=== PATIENT | male | born 1955 | race Caucasian/White ===

== ENCOUNTER 2018-09-11 08:20 | Inpatient (IN) | payer OTHER ==
[2018-09-11 09:43] LABS: ADD MAN DIFF? NO
[2018-09-11 09:45] LABS: BASOPHIL # 0.1 10^3/ul (0.0-0.1); BASOPHILS % 0.6 % (0.0-2.0); EOSINOPHILS # 0.2 10^3/ul (0.0-0.5); HEMATOCRIT 29.5 % (42.0-52.0); HEMOGLOBIN 9.7 g/dl (14.0-18.0); LYMPHOCYTES # 1.7 10^3/ul (0.8-2.9); LYMPHOCYTES % 20.4 % (15.0-51.0); MEAN CORPUSCULAR HEMOGLOBIN 29.1 pg (29.0-33.0); MEAN CORPUSCULAR HGB CONC 32.9 g/dl (32.0-37.0); MEAN CORPUSCULAR VOLUME 88.6 fl (82.0-101.0); MEAN PLATELET VOLUME 10.9 fl (7.4-10.4); MONOCYTE # 0.6 10^3/ul (0.3-0.9); NEUTROPHIL # 5.8 10^3/ul (1.6-7.5); NEUTROPHILS % 69.5 % (39.0-77.0); PLATELET COUNT 209 10^3/UL (140-415); RED BLOOD COUNT 3.33 10^6/ul (4.70-6.10); RED CELL DISTRIBUTION WIDTH 13.8 % (11.5-14.5)
[2018-09-11 09:45] LABS: WHITE BLOOD COUNT 8.3 10^3/ul (4.8-10.8)
[2018-09-11] MEDS: FUROSEMIDE 40 MG INJ IV (09:58)
[2018-09-11 10:10] LABS: ALANINE AMINOTRANSFERASE 22 IU/L (13-69); ALBUMIN 2.8 g/dl (3.3-4.9); ALBUMIN/GLOBULIN RATIO 0.96; ALKALINE PHOSPHATASE 69 IU/L (42-121); ANION GAP 7 (5-13); ASPARTATE AMINO TRANSFERASE 24 IU/L (15-46); CALCIUM 8.4 mg/dl (8.4-10.2); CARBON DIOXIDE 22 mmol/L (21-31); CHLORIDE 111 mmol/L (97-110); Estimated GFR 23 mL/min (>60); GLUCOSE 179 mg/dl (70-220); POTASSIUM 4.1 mmol/L (3.5-5.1); SODIUM 140 mmol/L (135-144); TOTAL PROTEIN 5.7 g/dl (6.1-8.1)
[2018-09-11 10:13] LABS: BLOOD UREA NITROGEN 39 mg/dl (7-20)
[2018-09-11 10:24] LABS: B-TYPE NATRIURETIC PEPTIDE 4250 PG/ML (0-125)
[2018-09-11] MEDS: ASPIRIN 325 MG TAB PO (10:53)
[2018-09-11] MEDS: ENOXAPARIN 100 MG/ML SYG SC (10:55)
[2018-09-11] MEDS: NITROGLYCERIN 2% 1 GM OINT PKT TD (10:55)
[2018-09-11] MEDS ORDERED: ONDANSETRON 4 MG INJ IV (12:30)
[2018-09-11] MEDS ORDERED: ACETAMINOPHEN 325 MG TAB PO ×2 (12:30→13:00)
[2018-09-11] MEDS ORDERED: HEPARIN 1000 UNITS/ML 10 ML INJ IV (13:00)
[2018-09-11] MEDS ORDERED: morphine 4 MG/ML VIAL IV (13:00)
[2018-09-11] MEDS ORDERED: NITROGLYCERIN (SL) 0.4 MG TAB SL (13:00)
[2018-09-11] MEDS ORDERED: NACL 0.9% 3 ML SYG IV (13:00)
[2018-09-11 13:08] LABS: ADD MAN DIFF? NO
[2018-09-11 13:14] LABS: WHITE BLOOD COUNT 9.2 10^3/ul (4.8-10.8)
[2018-09-11 13:14] LABS: BASOPHILS % 0.4 % (0.0-2.0); EOSINOPHILS # 0.2 10^3/ul (0.0-0.5); EOSINOPHILS % 1.7 % (0.0-7.0); HEMATOCRIT 26.9 % (42.0-52.0); HEMOGLOBIN 8.7 g/dl (14.0-18.0); LYMPHOCYTES # 2.5 10^3/ul (0.8-2.9); LYMPHOCYTES % 27.1 % (15.0-51.0); MEAN CORPUSCULAR HEMOGLOBIN 28.5 pg (29.0-33.0); MEAN CORPUSCULAR HGB CONC 32.3 g/dl (32.0-37.0); MEAN CORPUSCULAR VOLUME 88.2 fl (82.0-101.0); MEAN PLATELET VOLUME 10.9 fl (7.4-10.4); MONOCYTE # 0.7 10^3/ul (0.3-0.9); MONOCYTES % 7.3 % (0.0-11.0); NEUTROPHIL # 5.8 10^3/ul (1.6-7.5); NEUTROPHILS % 63.2 % (39.0-77.0); PLATELET COUNT 205 10^3/UL (140-415); RED BLOOD COUNT 3.05 10^6/ul (4.70-6.10); RED CELL DISTRIBUTION WIDTH 13.9 % (11.5-14.5)
[2018-09-11 13:34] LABS: INR 1.06; PROTIME 13.9 Sec (11.9-14.9); PT RATIO 1.1
[2018-09-11] MEDS ORDERED: HEPARIN 25000 UNITS/250 ML 250 ML IV (14:00)
[2018-09-11] MEDS ORDERED: GLUCOSE GEL 15 GRAM TUBE PO ×2 (14:30)
[2018-09-11] MEDS ORDERED: DEXTROSE 50% 50 ML SYRINGE IV (14:30)
[2018-09-11] MEDS ORDERED: GLUCAGON 1 MG INJ IM (14:30)
[2018-09-11] MEDS ORDERED: GLUCOSE GEL 15 GRAM TUBE BUCCAL (14:30)
[2018-09-11] MEDS: FAMOTIDINE 20 MG TAB PO (14:49)
[2018-09-11 15:22] LABS: HEMATOCRIT 31.3 % (42.0-52.0); HEMOGLOBIN 10.4 g/dl (14.0-18.0)
[2018-09-11 15:23] LABS: RETICULOCYTE COUNT # 0.083 X10^6 (0.020-0.110); RETICULOCYTE COUNT % 2.3 % (0.5-1.5)
[2018-09-11 15:23] LABS: RETICULOCYTE RBC 3.61
[2018-09-11] MEDS: SOD CHLORIDE 0.9% 1,000 ML IV (15:48)
[2018-09-11 16:27] LABS: IRON 48 ug/dl (35-150)
[2018-09-11 16:36] LABS: % IRON SATURATION 18 % SAT (22-52); TOTAL IRON BINDING CAPACITY 261 ug/dl (241-421)
[2018-09-11] MEDS: INSULIN ASPART [NOVOLOG] 3 ML PEN SC ×3 (17:46→20:52)
[2018-09-11 18:20] LABS: ADD UMIC YES; UR ASCORBIC ACID NEGATIVE (NEGATIVE); UR BACTERIA FEW /HPF (NONE SEEN); UR BILIRUBIN (Dip) NEGATIVE (NEGATIVE); UR BLOOD (Dip) 1+ mg/dL (NEGATIVE); UR CLARITY CLEAR (CLEAR); UR COLOR STRAW (YELLOW); UR GLUCOSE (Dip) 1+ mg/dL (NEGATIVE); UR KETONES (Dip) NEGATIVE (NEGATIVE); UR LEUKOCYTE ESTERASE (Dip) NEGATIVE Leu/ul (NEGATIVE); UR NITRITE (Dip) NEGATIVE (NEGATIVE); UR RBC 0 /HPF (0-5); UR SPECIFIC GRAVITY (Dip) 1.009 (1.003-1.030); UR TOTAL PROTEIN (Dip) 2+ mg/dl (NEGATIVE); UR UROBILINOGEN (Dip) NEGATIVE (NEGATIVE); UR WBC 1 /HPF (0-5)
[2018-09-11 19:00] LABS: CREATININE,URINE RANDOM 24.48 mg/dl (20-370)
[2018-09-11 19:00] LABS: SODIUM,URINE RANDOM 123 mmol/L (30-90)
[2018-09-11] MEDS: ACETYLCYSTEINE 600 MG CAP PO (20:54)
[2018-09-11] MEDS: ISOSORBIDE DINITRATE 20 MG TAB PO (20:55)
[2018-09-11] MEDS: ATORVASTATIN 80 MG TAB PO (20:55)
[2018-09-11] MEDS: INSULIN GLARGINE [LANTus] (100 UNITS/ML) SYG SC (20:58)
[2018-09-11] MEDS: HEPARIN 1000 UNITS/ML 10 ML INJ IV (23:19)
[2018-09-11] MEDS: HEPARIN 25000 UNITS/250 ML 250 ML IV (23:21)
[2018-09-12] MEDS: ACCU-CHEK XX (02:00)
[2018-09-12 05:41] LABS: ADD MAN DIFF? NO
[2018-09-12 05:43] LABS: BASOPHILS % 0.5 % (0.0-2.0); EOSINOPHILS # 0.2 10^3/ul (0.0-0.5); EOSINOPHILS % 2.1 % (0.0-7.0); HEMATOCRIT 30.1 % (42.0-52.0); HEMOGLOBIN 9.9 g/dl (14.0-18.0); LYMPHOCYTES # 2.3 10^3/ul (0.8-2.9); LYMPHOCYTES % 26.4 % (15.0-51.0); MEAN CORPUSCULAR HEMOGLOBIN 28.8 pg (29.0-33.0); MEAN CORPUSCULAR HGB CONC 32.9 g/dl (32.0-37.0); MEAN CORPUSCULAR VOLUME 87.5 fl (82.0-101.0); MEAN PLATELET VOLUME 11.6 fl (7.4-10.4); MONOCYTE # 0.6 10^3/ul (0.3-0.9); MONOCYTES % 7.1 % (0.0-11.0); NEUTROPHIL # 5.5 10^3/ul (1.6-7.5); NEUTROPHILS % 63.6 % (39.0-77.0); PLATELET COUNT 222 10^3/UL (140-415); RED BLOOD COUNT 3.44 10^6/ul (4.70-6.10); RED CELL DISTRIBUTION WIDTH 13.8 % (11.5-14.5)
[2018-09-12 05:43] LABS: WHITE BLOOD COUNT 8.6 10^3/ul (4.8-10.8)
[2018-09-12 06:18] LABS: HEMOGLOBIN A1C 9.3 % (0-5.9)
[2018-09-12] MEDS: HEPARIN 1000 UNITS/ML 10 ML INJ IV ×2 (06:19→12:05)
[2018-09-12 06:25] LABS: ALANINE AMINOTRANSFERASE 16 IU/L (13-69); ALBUMIN 2.8 g/dl (3.3-4.9); ALKALINE PHOSPHATASE 68 IU/L (42-121); ANION GAP 10 (5-13); ASPARTATE AMINO TRANSFERASE 23 IU/L (15-46); BLOOD UREA NITROGEN 43 mg/dl (7-20); CALCIUM 8.2 mg/dl (8.4-10.2); CARBON DIOXIDE 22 mmol/L (21-31); CHLORIDE 109 mmol/L (97-110); CHOL/HDL RATIO 7.8 RATIO; CHOLESTEROL 221 mg/dl (100-200); CREATININE 2.91 mg/dl (0.61-1.24); Estimated GFR 22 mL/min (>60); GLUCOSE 159 mg/dl (70-220); HDL CHOLESTEROL 28 mg/dl (30-78); LDL CHOLESTEROL,CALCULATED 106 mg/dl; MAGNESIUM 1.7 mg/dl (1.7-2.5); POTASSIUM 3.8 mmol/L (3.5-5.1); SODIUM 141 mmol/L (135-144); TOTAL PROTEIN 5.9 g/dl (6.1-8.1); TRIGLYCERIDES 436 mg/dl (0-149)
[2018-09-12] MEDS: SOD CHLORIDE 0.9% 1,000 ML IV ×3 (07:27→15:11)
[2018-09-12] MEDS: INSULIN ASPART [NOVOLOG] 3 ML PEN SC ×7 (07:46→20:05)
[2018-09-12] MEDS: ASPIRIN 81 MG TAB PO (08:14)
[2018-09-12] MEDS: FAMOTIDINE 20 MG TAB PO (08:15)
[2018-09-12] MEDS: ACETYLCYSTEINE 600 MG CAP PO ×2 (08:15→20:08)
[2018-09-12] MEDS: ISOSORBIDE DINITRATE 20 MG TAB PO ×3 (08:18→20:07)
[2018-09-12 11:19] LABS: PARTIAL THROMBOPLASTIN TIME 31.2 Sec (23.0-35.0)
[2018-09-12] MEDS: HEPARIN 25000 UNITS/250 ML 250 ML IV ×3 (12:06→19:29)
[2018-09-12] MEDS: INFLUENZA VIRUS VACCINE 0.5 ML (DISPENSING) IM* (15:10)
[2018-09-12] MEDS: LABETALOL HCL 20MG INJ IV (17:00)
[2018-09-12 19:23] LABS: PARTIAL THROMBOPLASTIN TIME 81.3 Sec (23.0-35.0)
[2018-09-12] MEDS: ATORVASTATIN 80 MG TAB PO (20:07)
[2018-09-12] MEDS: INSULIN GLARGINE [LANTus] (100 UNITS/ML) SYG SC (20:11)
[2018-09-13 01:46] LABS: PARTIAL THROMBOPLASTIN TIME 55.8 Sec (23.0-35.0)
[2018-09-13] MEDS: ACCU-CHEK XX (02:00)
[2018-09-13] MEDS: HEPARIN 25000 UNITS/250 ML 250 ML IV (02:14)
[2018-09-13] MEDS: INSULIN ASPART [NOVOLOG] 3 ML PEN SC ×7 (08:00→20:13)
[2018-09-13] MEDS: FAMOTIDINE 20 MG TAB PO (08:03)
[2018-09-13] MEDS: ASPIRIN 81 MG TAB PO (08:03)
[2018-09-13] MEDS: ACETYLCYSTEINE 600 MG CAP PO ×2 (08:03→20:06)
[2018-09-13] MEDS: ISOSORBIDE DINITRATE 20 MG TAB PO ×3 (08:05→20:13)
[2018-09-13 08:24] LABS: ADD MAN DIFF? NO
[2018-09-13 08:32] LABS: WHITE BLOOD COUNT 8.2 10^3/ul (4.8-10.8)
[2018-09-13 08:32] LABS: BASOPHILS % 0.5 % (0.0-2.0); EOSINOPHILS # 0.2 10^3/ul (0.0-0.5); EOSINOPHILS % 1.8 % (0.0-7.0); HEMATOCRIT 31.4 % (42.0-52.0); HEMOGLOBIN 10.2 g/dl (14.0-18.0); LYMPHOCYTES # 2.2 10^3/ul (0.8-2.9); LYMPHOCYTES % 26.8 % (15.0-51.0); MEAN CORPUSCULAR HEMOGLOBIN 28.6 pg (29.0-33.0); MEAN CORPUSCULAR HGB CONC 32.5 g/dl (32.0-37.0); MEAN PLATELET VOLUME 11.9 fl (7.4-10.4); MONOCYTE # 0.5 10^3/ul (0.3-0.9); MONOCYTES % 6.6 % (0.0-11.0); NEUTROPHIL # 5.2 10^3/ul (1.6-7.5); NEUTROPHILS % 64.1 % (39.0-77.0); PLATELET COUNT 237 10^3/UL (140-415); RED BLOOD COUNT 3.57 10^6/ul (4.70-6.10); RED CELL DISTRIBUTION WIDTH 13.9 % (11.5-14.5)
[2018-09-13 08:52] LABS: PARTIAL THROMBOPLASTIN TIME 51.7 Sec (23.0-35.0)
[2018-09-13 08:53] LABS: ANION GAP 11 (5-13); BLOOD UREA NITROGEN 38 mg/dl (7-20); CALCIUM 8.4 mg/dl (8.4-10.2); CARBON DIOXIDE 23 mmol/L (21-31); CHLORIDE 109 mmol/L (97-110); CREATININE 3.08 mg/dl (0.61-1.24); Estimated GFR 21 mL/min (>60); GLUCOSE 111 mg/dl (70-220); PHOSPHORUS 4.6 mg/dl (2.5-4.9); SODIUM 143 mmol/L (135-144)
[2018-09-13 09:08] LABS: MAGNESIUM 1.8 mg/dl (1.7-2.5)
[2018-09-13] MEDS: HEPARIN 5,000 UNIT/1 ML VIAL SC ×2 (14:20→20:16)
[2018-09-13 17:01] LABS: CREATININE, RANDOM URINE 31 mg/dL (20-320); MICROALBUMIN 200.4 mg/dL; MICROALBUMIN/CREATININE RATIO 6465 (<30)
[2018-09-13] MEDS: ATORVASTATIN 80 MG TAB PO (20:07)
[2018-09-13] MEDS: INSULIN GLARGINE [LANTus] (100 UNITS/ML) SYG SC (20:09)
[2018-09-14] MEDS: ACCU-CHEK XX (02:00)
[2018-09-14] MEDS: LABETALOL HCL 20MG INJ IV (04:19)
[2018-09-14] MEDS: HEPARIN 5,000 UNIT/1 ML VIAL SC ×3 (05:05→22:33)
[2018-09-14 05:13] LABS: ADD MAN DIFF? NO
[2018-09-14 05:20] LABS: BASOPHILS % 0.5 % (0.0-2.0); EOSINOPHILS # 0.2 10^3/ul (0.0-0.5); EOSINOPHILS % 2.5 % (0.0-7.0); HEMATOCRIT 29.1 % (42.0-52.0); HEMOGLOBIN 9.4 g/dl (14.0-18.0); LYMPHOCYTES # 2.1 10^3/ul (0.8-2.9); LYMPHOCYTES % 27.5 % (15.0-51.0); MEAN CORPUSCULAR HEMOGLOBIN 28.6 pg (29.0-33.0); MEAN CORPUSCULAR HGB CONC 32.3 g/dl (32.0-37.0); MEAN CORPUSCULAR VOLUME 88.4 fl (82.0-101.0); MEAN PLATELET VOLUME 10.9 fl (7.4-10.4); MONOCYTE # 0.6 10^3/ul (0.3-0.9); MONOCYTES % 7.3 % (0.0-11.0); NEUTROPHIL # 4.7 10^3/ul (1.6-7.5); NEUTROPHILS % 61.8 % (39.0-77.0); PLATELET COUNT 214 10^3/UL (140-415); RED BLOOD COUNT 3.29 10^6/ul (4.70-6.10); RED CELL DISTRIBUTION WIDTH 13.8 % (11.5-14.5)
[2018-09-14 05:20] LABS: WHITE BLOOD COUNT 7.6 10^3/ul (4.8-10.8)
[2018-09-14 05:37] LABS: ANION GAP 5 (5-13); BLOOD UREA NITROGEN 38 mg/dl (7-20); CALCIUM 8.3 mg/dl (8.4-10.2); CARBON DIOXIDE 23 mmol/L (21-31); CHLORIDE 115 mmol/L (97-110); CREATININE 3.02 mg/dl (0.61-1.24); Estimated GFR 21 mL/min (>60); GLUCOSE 137 mg/dl (70-220); MAGNESIUM 1.8 mg/dl (1.7-2.5); PHOSPHORUS 4.6 mg/dl (2.5-4.9); POTASSIUM 4.1 mmol/L (3.5-5.1); SODIUM 143 mmol/L (135-144)
[2018-09-14] MEDS: INSULIN ASPART [NOVOLOG] 3 ML PEN SC ×7 (07:51→20:40)
[2018-09-14] MEDS: ASPIRIN 81 MG TAB PO (08:37)
[2018-09-14] MEDS: ACETYLCYSTEINE 600 MG CAP PO ×2 (08:37→20:29)
[2018-09-14] MEDS: FAMOTIDINE 20 MG TAB PO (08:37)
[2018-09-14] MEDS: ISOSORBIDE DINITRATE 20 MG TAB PO ×3 (08:38→20:30)
[2018-09-14] MEDS: AMLODIPINE 5 MG TAB PO (08:39)
[2018-09-14 08:51] LABS: HAAIG REFLEX REFLEX FILED
[2018-09-14] MEDS: AMLODIPINE 10 MG TAB PO (10:51)
[2018-09-14 14:46] LABS: COMPLEMENT C3 136 mg/dl (88-165); COMPLEMENT C4 38 mg/dl (14-44)
[2018-09-14 15:10] LABS: HEPATITIS B SURFACE ANTIGEN NEGATIVE (NEGATIVE)
[2018-09-14 15:28] LABS: HEPATITIS B CORE ANTIBODY NEGATIVE (NEGATIVE); HEPATITIS C VIRAL ANTIBODY NEGATIVE (NEGATIVE)
[2018-09-14] MEDS: ATORVASTATIN 80 MG TAB PO (20:29)
[2018-09-14] MEDS: INSULIN GLARGINE [LANTus] (100 UNITS/ML) SYG SC (20:40)
[2018-09-14 22:22] LABS: RHEUMATOID FACTOR NEGATIVE (NEGATIVE)
[2018-09-15] MEDS: ACCU-CHEK XX (02:00)
[2018-09-15] MEDS: HEPARIN 5,000 UNIT/1 ML VIAL SC (06:00)
[2018-09-15 06:49] LABS: ADD MAN DIFF? NO
[2018-09-15 06:57] LABS: WHITE BLOOD COUNT 8.4 10^3/ul (4.8-10.8)
[2018-09-15 06:57] LABS: BASOPHILS % 0.5 % (0.0-2.0); EOSINOPHILS # 0.2 10^3/ul (0.0-0.5); EOSINOPHILS % 2.4 % (0.0-7.0); HEMATOCRIT 30.9 % (42.0-52.0); HEMOGLOBIN 9.9 g/dl (14.0-18.0); LYMPHOCYTES % 24.1 % (15.0-51.0); MEAN CORPUSCULAR HEMOGLOBIN 28.4 pg (29.0-33.0); MEAN CORPUSCULAR VOLUME 88.8 fl (82.0-101.0); MEAN PLATELET VOLUME 12.1 fl (7.4-10.4); MONOCYTE # 0.7 10^3/ul (0.3-0.9); MONOCYTES % 8.1 % (0.0-11.0); NEUTROPHIL # 5.4 10^3/ul (1.6-7.5); NEUTROPHILS % 64.4 % (39.0-77.0); PLATELET COUNT 222 10^3/UL (140-415); RED BLOOD COUNT 3.48 10^6/ul (4.70-6.10); RED CELL DISTRIBUTION WIDTH 14.3 % (11.5-14.5)
[2018-09-15] MEDS: ASPIRIN 81 MG TAB PO (06:59)
[2018-09-15 07:13] LABS: CREATINE KINASE 197 IU/L (23-200)
[2018-09-15 07:16] LABS: PROTIME 12.3 Sec (11.9-14.9)
[2018-09-15 07:19] LABS: ALANINE AMINOTRANSFERASE 31 IU/L (13-69); ALBUMIN 2.7 g/dl (3.3-4.9); ALKALINE PHOSPHATASE 72 IU/L (42-121); ANION GAP 4 (5-13); ASPARTATE AMINO TRANSFERASE 26 IU/L (15-46); BILIRUBIN,INDIRECT 0.1 mg/dl (0-1.1); BILIRUBIN,TOTAL 0.1 mg/dl (0.2-1.3); BLOOD UREA NITROGEN 36 mg/dl (7-20); CALCIUM 8.6 mg/dl (8.4-10.2); CARBON DIOXIDE 22 mmol/L (21-31); CHLORIDE 116 mmol/L (97-110); CREATININE 2.92 mg/dl (0.61-1.24); Estimated GFR 22 mL/min (>60); GLUCOSE 128 mg/dl (70-220); MAGNESIUM 1.8 mg/dl (1.7-2.5); POTASSIUM 4.2 mmol/L (3.5-5.1); SODIUM 142 mmol/L (135-144); TOTAL PROTEIN 5.4 g/dl (6.1-8.1)
[2018-09-15 07:26] LABS: CK INDEX 0.8; CK-MB 1.55 ng/ml (0.0-2.4)
[2018-09-15] MEDS ORDERED: MIDAZOLAM 1 MG/ML 2 ML INJ (07:27)
[2018-09-15] MEDS ORDERED: IODIXANOL LOCM 100 ML BTL (07:27)
[2018-09-15] MEDS ORDERED: LIDOCAINE 1% (MDV) 20 ML INJ (07:27)
[2018-09-15] MEDS ORDERED: HEPARIN 1000 UNITS/ML 10 ML INJ (07:27)
[2018-09-15] MEDS ORDERED: SOD CHLORIDE 0.9% 500 ML (07:28)
[2018-09-15] MEDS ORDERED: VERAPAMIL 5 MG INJ (07:28)
[2018-09-15] MEDS ORDERED: NITROGLYCERIN (IC) 100 MCG/ML INJ ×2 (07:28→08:41)
[2018-09-15] MEDS ORDERED: FENTAnyl 50 MCG/ML VIAL (07:28)
[2018-09-15 07:31] LABS: TROPONIN-I 0.537 ng/ml (0.000-0.120)
[2018-09-15] MEDS: INSULIN ASPART [NOVOLOG] 3 ML PEN SC ×5 (08:00→20:22)
[2018-09-15] MEDS ORDERED: BIVALIRUDIN 250MG /NS 50 ML 100 ML IVPB (08:06)
[2018-09-15] MEDS ORDERED: TICAGRELOR 90 MG TABLET (08:06)
[2018-09-15] MEDS: TICAGRELOR 90 MG TABLET PO ×2 (09:00→20:24)
[2018-09-15] MEDS: SOD CHLORIDE 0.9% 1,000 ML IV ×2 (09:25→09:32)
[2018-09-15 09:26] LABS: PHOSPHORUS 4.2 mg/dl (2.5-4.9)
[2018-09-15] MEDS: FAMOTIDINE 20 MG TAB PO (10:36)
[2018-09-15] MEDS: ISOSORBIDE DINITRATE 20 MG TAB PO ×3 (10:36→20:21)
[2018-09-15] MEDS: AMLODIPINE 10 MG TAB PO (10:37)
[2018-09-15] MEDS: ACETYLCYSTEINE 600 MG CAP PO ×2 (11:00→20:22)
[2018-09-15] MEDS: HYDROCODONE/APAP (5/325) TAB PO (12:00)
[2018-09-15] MEDS ORDERED: ATROPINE 1 MG/10 ML SYRINGE (12:44)
[2018-09-15 13:22] LABS: ANCA SCREEN NEGATIVE (NEGATIVE)
[2018-09-15 14:06] LABS: ANA SCREEN NEGATIVE (NEGATIVE)
[2018-09-15 15:42] LABS: MYELOPEROXIDASE ANTIBODY <1.0 AI; PROTEINASE-3 ANTIBODY <1.0 AI
[2018-09-15] MEDS: ONDANSETRON 4 MG INJ IV (16:48)
[2018-09-15] MEDS: morphine LIQ (10 MG/5 ML) CUP PO (16:48)
[2018-09-15] MEDS: ATORVASTATIN 80 MG TAB PO (20:22)
[2018-09-15] MEDS: INSULIN GLARGINE [LANTus] (100 UNITS/ML) SYG SC (20:23)
[2018-09-16] MEDS: ACCU-CHEK XX (02:50)
[2018-09-16 03:10] LABS: CREATININE,URINE RANDOM 150.64 mg/dl (20-370)
[2018-09-16 06:08] LABS: ADD MAN DIFF? NO
[2018-09-16 06:10] LABS: BASOPHILS % 0.3 % (0.0-2.0); EOSINOPHILS # 0.1 10^3/ul (0.0-0.5); EOSINOPHILS % 0.9 % (0.0-7.0); HEMATOCRIT 27.7 % (42.0-52.0); HEMOGLOBIN 8.8 g/dl (14.0-18.0); LYMPHOCYTES # 1.5 10^3/ul (0.8-2.9); LYMPHOCYTES % 17.3 % (15.0-51.0); MEAN CORPUSCULAR HEMOGLOBIN 28.5 pg (29.0-33.0); MEAN CORPUSCULAR HGB CONC 31.8 g/dl (32.0-37.0); MEAN CORPUSCULAR VOLUME 89.6 fl (82.0-101.0); MEAN PLATELET VOLUME 11.4 fl (7.4-10.4); MONOCYTE # 0.8 10^3/ul (0.3-0.9); MONOCYTES % 9.2 % (0.0-11.0); NEUTROPHIL # 6.3 10^3/ul (1.6-7.5); NEUTROPHILS % 72.1 % (39.0-77.0); PLATELET COUNT 220 10^3/UL (140-415); RED BLOOD COUNT 3.09 10^6/ul (4.70-6.10); RED CELL DISTRIBUTION WIDTH 14.4 % (11.5-14.5)
[2018-09-16 06:10] LABS: WHITE BLOOD COUNT 8.8 10^3/ul (4.8-10.8)
[2018-09-16 06:52] LABS: ANION GAP 5 (5-13); BLOOD UREA NITROGEN 41 mg/dl (7-20); CALCIUM 8.2 mg/dl (8.4-10.2); CARBON DIOXIDE 20 mmol/L (21-31); CHLORIDE 112 mmol/L (97-110); CREATININE 3.33 mg/dl (0.61-1.24); Estimated GFR 19 mL/min (>60); GLUCOSE 100 mg/dl (70-220); MAGNESIUM 1.8 mg/dl (1.7-2.5); PHOSPHORUS 4.5 mg/dl (2.5-4.9); POTASSIUM 4.2 mmol/L (3.5-5.1); SODIUM 137 mmol/L (135-144)
[2018-09-16] MEDS: INSULIN ASPART [NOVOLOG] 3 ML PEN SC ×7 (07:57→20:19)
[2018-09-16] MEDS: FAMOTIDINE 20 MG TAB PO (08:11)
[2018-09-16] MEDS: ISOSORBIDE DINITRATE 20 MG TAB PO ×3 (08:11→20:18)
[2018-09-16] MEDS: ASPIRIN 81 MG TAB PO (08:11)
[2018-09-16] MEDS: AMLODIPINE 10 MG TAB PO (08:12)
[2018-09-16] MEDS: TICAGRELOR 90 MG TABLET PO ×2 (08:16→20:22)
[2018-09-16] MEDS: ACETYLCYSTEINE 600 MG CAP PO ×2 (09:01→20:18)
[2018-09-16] MEDS: SOD CHLORIDE 0.9% 1,000 ML IV (09:09)
[2018-09-16 16:11] LABS: ANTI-DNA (DOUBLE STRANDED) <95 U/mL (< 301)
[2018-09-16] MEDS: ATORVASTATIN 80 MG TAB PO (20:18)
[2018-09-16] MEDS: INSULIN GLARGINE [LANTus] (100 UNITS/ML) SYG SC (20:21)
[2018-09-17] MEDS: ACCU-CHEK XX (01:50)
[2018-09-17] MEDS: SOD CHLORIDE 0.9% 1,000 ML IV ×2 (05:35→08:06)
[2018-09-17 06:19] LABS: ADD MAN DIFF? NO
[2018-09-17 06:34] LABS: BASOPHILS % 0.5 % (0.0-2.0); EOSINOPHILS # 0.1 10^3/ul (0.0-0.5); EOSINOPHILS % 1.5 % (0.0-7.0); LYMPHOCYTES # 1.5 10^3/ul (0.8-2.9); LYMPHOCYTES % 16.9 % (15.0-51.0); MEAN CORPUSCULAR HEMOGLOBIN 28.9 pg (29.0-33.0); MEAN CORPUSCULAR HGB CONC 32.1 g/dl (32.0-37.0); MEAN PLATELET VOLUME 11.4 fl (7.4-10.4); MONOCYTE # 0.9 10^3/ul (0.3-0.9); MONOCYTES % 9.8 % (0.0-11.0); NEUTROPHIL # 6.1 10^3/ul (1.6-7.5); PLATELET COUNT 221 10^3/UL (140-415); RED BLOOD COUNT 3.11 10^6/ul (4.70-6.10)
[2018-09-17 06:34] LABS: WHITE BLOOD COUNT 8.6 10^3/ul (4.8-10.8)
[2018-09-17 06:50] LABS: ANION GAP 5 (5-13); BLOOD UREA NITROGEN 47 mg/dl (7-20); CALCIUM 8.2 mg/dl (8.4-10.2); CARBON DIOXIDE 20 mmol/L (21-31); CHLORIDE 109 mmol/L (97-110); CREATININE 3.74 mg/dl (0.61-1.24); Estimated GFR 16 mL/min (>60); GLUCOSE 107 mg/dl (70-220); MAGNESIUM 1.9 mg/dl (1.7-2.5); PHOSPHORUS 4.9 mg/dl (2.5-4.9); POTASSIUM 4.3 mmol/L (3.5-5.1); SODIUM 134 mmol/L (135-144)
[2018-09-17] MEDS: INSULIN ASPART [NOVOLOG] 3 ML PEN SC ×7 (07:55→20:35)
[2018-09-17] MEDS: ACETYLCYSTEINE 600 MG CAP PO ×2 (08:00→21:20)
[2018-09-17] MEDS: ASPIRIN 81 MG TAB PO (08:00)
[2018-09-17] MEDS: FAMOTIDINE 20 MG TAB PO (08:00)
[2018-09-17] MEDS: AMLODIPINE 10 MG TAB PO (08:01)
[2018-09-17] MEDS: ISOSORBIDE DINITRATE 20 MG TAB PO ×3 (08:01→20:28)
[2018-09-17] MEDS: TICAGRELOR 90 MG TABLET PO ×2 (08:05→20:21)
[2018-09-17] MEDS ORDERED: ALBUTEROL/IPRATROPIUM (NEB) 3 ML AMP HHN (16:30)
[2018-09-17] MEDS: ALBUTEROL/IPRATROPIUM (NEB) 3 ML AMP HHN ×2 (16:58→20:30)
[2018-09-17 18:43] LABS: CREATINE KINASE 663 IU/L (23-200)
[2018-09-17] MEDS ORDERED: HEPARIN 1000 UNITS/ML 10 ML INJ IV (19:00)
[2018-09-17] MEDS: HEPARIN 1000 UNITS/ML 10 ML INJ IV (19:05)
[2018-09-17] MEDS: ATORVASTATIN 80 MG TAB PO (20:14)
[2018-09-17] MEDS: RANOLAZINE (SR) 500 MG TAB PO (20:14)
[2018-09-17 20:15] LABS: PARTIAL THROMBOPLASTIN TIME 97.2 Sec (23.0-35.0)
[2018-09-17] MEDS: INSULIN GLARGINE [LANTus] (100 UNITS/ML) SYG SC (20:22)
[2018-09-17] MEDS: HEPARIN 25000 UNITS/250 ML 250 ML IV (20:23)
[2018-09-18] MEDS: ALBUTEROL/IPRATROPIUM (NEB) 3 ML AMP HHN ×4 (02:02→20:02)
[2018-09-18] MEDS: ACCU-CHEK XX (02:39)
[2018-09-18 02:41] LABS: PARTIAL THROMBOPLASTIN TIME 36.8 Sec (23.0-35.0)
[2018-09-18 05:28] LABS: ADD MAN DIFF? NO
[2018-09-18 05:39] LABS: WHITE BLOOD COUNT 7.4 10^3/ul (4.8-10.8)
[2018-09-18 05:39] LABS: BASOPHILS % 0.4 % (0.0-2.0); EOSINOPHILS # 0.1 10^3/ul (0.0-0.5); EOSINOPHILS % 1.4 % (0.0-7.0); HEMOGLOBIN 8.2 g/dl (14.0-18.0); LYMPHOCYTES # 1.4 10^3/ul (0.8-2.9); LYMPHOCYTES % 18.5 % (15.0-51.0); MEAN CORPUSCULAR HEMOGLOBIN 29.1 pg (29.0-33.0); MEAN CORPUSCULAR HGB CONC 32.8 g/dl (32.0-37.0); MEAN CORPUSCULAR VOLUME 88.7 fl (82.0-101.0); MEAN PLATELET VOLUME 11.5 fl (7.4-10.4); MONOCYTE # 0.9 10^3/ul (0.3-0.9); MONOCYTES % 12.3 % (0.0-11.0); NEUTROPHIL # 4.9 10^3/ul (1.6-7.5); PLATELET COUNT 188 10^3/UL (140-415); RED BLOOD COUNT 2.82 10^6/ul (4.70-6.10); RED CELL DISTRIBUTION WIDTH 13.6 % (11.5-14.5)
[2018-09-18 05:44] LABS: CREATINE KINASE 543 IU/L (23-200)
[2018-09-18 05:53] LABS: ANION GAP 7 (5-13); BLOOD UREA NITROGEN 50 mg/dl (7-20); CALCIUM 8.2 mg/dl (8.4-10.2); CARBON DIOXIDE 19 mmol/L (21-31); CHLORIDE 109 mmol/L (97-110); CREATININE 3.78 mg/dl (0.61-1.24); Estimated GFR 16 mL/min (>60); GLUCOSE 96 mg/dl (70-220); MAGNESIUM 1.9 mg/dl (1.7-2.5); PHOSPHORUS 5.5 mg/dl (2.5-4.9); POTASSIUM 4.2 mmol/L (3.5-5.1); SODIUM 135 mmol/L (135-144)
[2018-09-18 05:58] LABS: CK INDEX 1.6
[2018-09-18 05:59] LABS: CK-MB 8.84 ng/ml (0.0-2.4)
[2018-09-18] MEDS: LORAZEPAM 2 MG INJ IV (07:05)
[2018-09-18] MEDS: INSULIN ASPART [NOVOLOG] 3 ML PEN SC ×7 (07:47→20:57)
[2018-09-18] MEDS: ASPIRIN 81 MG TAB PO (07:50)
[2018-09-18] MEDS: ISOSORBIDE DINITRATE 20 MG TAB PO ×3 (07:51→20:56)
[2018-09-18] MEDS: AMLODIPINE 10 MG TAB PO (07:51)
[2018-09-18] MEDS: FAMOTIDINE 20 MG TAB PO (07:51)
[2018-09-18] MEDS: RANOLAZINE (SR) 500 MG TAB PO ×2 (07:52→20:55)
[2018-09-18] MEDS: TICAGRELOR 90 MG TABLET PO ×2 (07:54→20:53)
[2018-09-18] MEDS: ACETYLCYSTEINE 600 MG CAP PO ×2 (09:10→20:55)
[2018-09-18 09:41] LABS: ALANINE AMINOTRANSFERASE 35 IU/L (13-69); ALBUMIN 2.7 g/dl (3.3-4.9); ALKALINE PHOSPHATASE 69 IU/L (42-121); ANION GAP 7 (5-13); ASPARTATE AMINO TRANSFERASE 54 IU/L (15-46); BILIRUBIN,INDIRECT 0.1 mg/dl (0-1.1); BILIRUBIN,TOTAL 0.1 mg/dl (0.2-1.3); BLOOD UREA NITROGEN 49 mg/dl (7-20); CALCIUM 8.1 mg/dl (8.4-10.2); CARBON DIOXIDE 18 mmol/L (21-31); CHLORIDE 109 mmol/L (97-110); CREATININE 3.58 mg/dl (0.61-1.24); Estimated GFR 17 mL/min (>60); GLUCOSE 96 mg/dl (70-220); POTASSIUM 4.3 mmol/L (3.5-5.1); SODIUM 134 mmol/L (135-144); TOTAL PROTEIN 5.4 g/dl (6.1-8.1)
[2018-09-18 09:51] LABS: B-TYPE NATRIURETIC PEPTIDE 6550 PG/ML (0-125)
[2018-09-18 17:46] LABS: CREATININE, RANDOM URINE 141 mg/dL (20-320); MICROALBUMIN >600.0 mg/dL
[2018-09-18] MEDS: INSULIN GLARGINE [LANTus] (100 UNITS/ML) SYG SC (20:53)
[2018-09-18] MEDS: ATORVASTATIN 80 MG TAB PO (20:55)
[2018-09-18] MEDS: POLYETHYLENE GLYCOL 17 GM PACKET NGT (21:00)
[2018-09-19] MEDS: ALBUTEROL/IPRATROPIUM (NEB) 3 ML AMP HHN ×4 (02:15→20:28)
[2018-09-19] MEDS: ACCU-CHEK XX (02:30)
[2018-09-19] MEDS: INSULIN ASPART [NOVOLOG] 3 ML PEN SC ×7 (07:35→21:35)
[2018-09-19] MEDS: RANOLAZINE (SR) 500 MG TAB PO ×2 (08:02→20:32)
[2018-09-19] MEDS: ASPIRIN 81 MG TAB PO (08:02)
[2018-09-19] MEDS: POLYETHYLENE GLYCOL 17 GM PACKET NGT (08:02)
[2018-09-19] MEDS: FAMOTIDINE 20 MG TAB PO (08:02)
[2018-09-19] MEDS: ACETYLCYSTEINE 600 MG CAP PO ×2 (08:03→20:32)
[2018-09-19] MEDS: AMLODIPINE 10 MG TAB PO (08:03)
[2018-09-19] MEDS: ISOSORBIDE DINITRATE 20 MG TAB PO ×3 (08:03→20:31)
[2018-09-19] MEDS: TICAGRELOR 90 MG TABLET PO ×2 (08:07→21:35)
[2018-09-19 08:27] LABS: ANION GAP 8 (5-13); BLOOD UREA NITROGEN 52 mg/dl (7-20); CALCIUM 8.4 mg/dl (8.4-10.2); CARBON DIOXIDE 17 mmol/L (21-31); CHLORIDE 109 mmol/L (97-110); CREATININE 3.87 mg/dl (0.61-1.24); Estimated GFR 16 mL/min (>60); GLUCOSE 79 mg/dl (70-220); PHOSPHORUS 6.5 mg/dl (2.5-4.9); POTASSIUM 4.7 mmol/L (3.5-5.1); SODIUM 134 mmol/L (135-144)
[2018-09-19] MEDS ORDERED: SENNA TAB PO (19:30)
[2018-09-19] MEDS: ATORVASTATIN 80 MG TAB PO (20:32)
[2018-09-19] MEDS: INSULIN GLARGINE [LANTus] (100 UNITS/ML) SYG SC (21:35)
[2018-09-20] MEDS: ALBUTEROL/IPRATROPIUM (NEB) 3 ML AMP HHN ×5 (01:25→19:52)
[2018-09-20] MEDS: ACCU-CHEK XX (02:00)
[2018-09-20 05:52] LABS: ADD MAN DIFF? NO
[2018-09-20 05:56] LABS: BASOPHILS % 0.2 % (0.0-2.0); EOSINOPHILS # 0.2 10^3/ul (0.0-0.5); EOSINOPHILS % 2.1 % (0.0-7.0); HEMOGLOBIN 8.6 g/dl (14.0-18.0); LYMPHOCYTES # 1.3 10^3/ul (0.8-2.9); LYMPHOCYTES % 15.6 % (15.0-51.0); MEAN CORPUSCULAR HEMOGLOBIN 28.4 pg (29.0-33.0); MEAN CORPUSCULAR HGB CONC 31.9 g/dl (32.0-37.0); MEAN CORPUSCULAR VOLUME 89.1 fl (82.0-101.0); MEAN PLATELET VOLUME 11.1 fl (7.4-10.4); MONOCYTE # 0.9 10^3/ul (0.3-0.9); MONOCYTES % 10.5 % (0.0-11.0); NEUTROPHIL # 6.1 10^3/ul (1.6-7.5); NEUTROPHILS % 71.1 % (39.0-77.0); PLATELET COUNT 260 10^3/UL (140-415); RED BLOOD COUNT 3.03 10^6/ul (4.70-6.10); RED CELL DISTRIBUTION WIDTH 13.4 % (11.5-14.5)
[2018-09-20 05:56] LABS: WHITE BLOOD COUNT 8.6 10^3/ul (4.8-10.8)
[2018-09-20 06:27] LABS: ANION GAP 8 (5-13); BLOOD UREA NITROGEN 59 mg/dl (7-20); CALCIUM 8.6 mg/dl (8.4-10.2); CARBON DIOXIDE 18 mmol/L (21-31); CHLORIDE 110 mmol/L (97-110); CREATININE 4.58 mg/dl (0.61-1.24); Estimated GFR 13 mL/min (>60); GLUCOSE 142 mg/dl (70-220); MAGNESIUM 2.1 mg/dl (1.7-2.5); PHOSPHORUS 6.2 mg/dl (2.5-4.9); POTASSIUM 4.6 mmol/L (3.5-5.1); SODIUM 136 mmol/L (135-144)
[2018-09-20] MEDS: INSULIN ASPART [NOVOLOG] 3 ML PEN SC ×7 (07:28→20:42)
[2018-09-20] MEDS: ASPIRIN 81 MG TAB PO (08:53)
[2018-09-20] MEDS: ACETYLCYSTEINE 600 MG CAP PO ×2 (08:54→20:40)
[2018-09-20] MEDS: ISOSORBIDE DINITRATE 20 MG TAB PO ×3 (08:54→20:40)
[2018-09-20] MEDS: RANOLAZINE (SR) 500 MG TAB PO ×2 (08:55→20:40)
[2018-09-20] MEDS: AMLODIPINE 10 MG TAB PO (08:55)
[2018-09-20] MEDS: FAMOTIDINE 20 MG TAB PO (08:55)
[2018-09-20] MEDS: TICAGRELOR 90 MG TABLET PO ×2 (08:57→21:09)
[2018-09-20] MEDS: SALINE 0.65% 45 ML NAS SPRAY NASAL ×2 (12:18→18:01)
[2018-09-20] MEDS: ATORVASTATIN 80 MG TAB PO (20:40)
[2018-09-20] MEDS: INSULIN GLARGINE [LANTus] (100 UNITS/ML) SYG SC (21:09)
[2018-09-21] MEDS: ALBUTEROL/IPRATROPIUM (NEB) 3 ML AMP HHN ×4 (01:47→21:18)
[2018-09-21] MEDS: ACCU-CHEK XX (02:00)
[2018-09-21] MEDS: SALINE 0.65% 45 ML NAS SPRAY NASAL (05:19)
[2018-09-21 05:50] LABS: ADD MAN DIFF? NO
[2018-09-21 06:05] LABS: BASOPHILS % 0.5 % (0.0-2.0); EOSINOPHILS # 0.2 10^3/ul (0.0-0.5); EOSINOPHILS % 2.1 % (0.0-7.0); HEMOGLOBIN 8.4 g/dl (14.0-18.0); LYMPHOCYTES # 1.5 10^3/ul (0.8-2.9); LYMPHOCYTES % 17.6 % (15.0-51.0); MEAN CORPUSCULAR HEMOGLOBIN 29.2 pg (29.0-33.0); MEAN CORPUSCULAR HGB CONC 32.3 g/dl (32.0-37.0); MEAN CORPUSCULAR VOLUME 90.3 fl (82.0-101.0); MEAN PLATELET VOLUME 11.2 fl (7.4-10.4); MONOCYTE # 0.7 10^3/ul (0.3-0.9); MONOCYTES % 8.1 % (0.0-11.0); NEUTROPHIL # 5.9 10^3/ul (1.6-7.5); NEUTROPHILS % 71.5 % (39.0-77.0); PLATELET COUNT 287 10^3/UL (140-415); RED BLOOD COUNT 2.88 10^6/ul (4.70-6.10); RED CELL DISTRIBUTION WIDTH 13.4 % (11.5-14.5)
[2018-09-21 06:05] LABS: WHITE BLOOD COUNT 8.2 10^3/ul (4.8-10.8)
[2018-09-21 07:23] LABS: ANION GAP 11 (5-13); BLOOD UREA NITROGEN 56 mg/dl (7-20); CALCIUM 8.9 mg/dl (8.4-10.2); CARBON DIOXIDE 18 mmol/L (21-31); CHLORIDE 109 mmol/L (97-110); CREATININE 4.45 mg/dl (0.61-1.24); Estimated GFR 13 mL/min (>60); GLUCOSE 84 mg/dl (70-220); MAGNESIUM 2.2 mg/dl (1.7-2.5); PHOSPHORUS 5.9 mg/dl (2.5-4.9); POTASSIUM 4.6 mmol/L (3.5-5.1); SODIUM 138 mmol/L (135-144)
[2018-09-21] MEDS: INSULIN ASPART [NOVOLOG] 3 ML PEN SC ×7 (08:00→21:00)
[2018-09-21] MEDS: FAMOTIDINE 20 MG TAB PO (09:28)
[2018-09-21] MEDS: RANOLAZINE (SR) 500 MG TAB PO ×2 (09:28→20:42)
[2018-09-21] MEDS: ACETYLCYSTEINE 600 MG CAP PO ×2 (09:28→21:56)
[2018-09-21] MEDS: ASPIRIN 81 MG TAB PO (09:28)
[2018-09-21] MEDS: AMLODIPINE 10 MG TAB PO (09:30)
[2018-09-21] MEDS: ISOSORBIDE DINITRATE 20 MG TAB PO ×3 (09:30→20:42)
[2018-09-21] MEDS: TICAGRELOR 90 MG TABLET PO ×2 (09:36→21:49)
[2018-09-21] MEDS: ATORVASTATIN 80 MG TAB PO (20:42)
[2018-09-21] MEDS: INSULIN GLARGINE [LANTus] (100 UNITS/ML) SYG SC (21:49)
[2018-09-22] MEDS: ACCU-CHEK XX (02:00)
[2018-09-22] MEDS: ALBUTEROL/IPRATROPIUM (NEB) 3 ML AMP HHN ×4 (02:07→19:39)
[2018-09-22 05:52] LABS: ADD MAN DIFF? NO
[2018-09-22 06:03] LABS: WHITE BLOOD COUNT 7.9 10^3/ul (4.8-10.8)
[2018-09-22 06:03] LABS: BASOPHIL # 0.1 10^3/ul (0.0-0.1); BASOPHILS % 0.6 % (0.0-2.0); EOSINOPHILS # 0.2 10^3/ul (0.0-0.5); EOSINOPHILS % 2.6 % (0.0-7.0); HEMATOCRIT 25.2 % (42.0-52.0); HEMOGLOBIN 8.1 g/dl (14.0-18.0); LYMPHOCYTES # 1.4 10^3/ul (0.8-2.9); LYMPHOCYTES % 17.4 % (15.0-51.0); MEAN CORPUSCULAR HEMOGLOBIN 29.1 pg (29.0-33.0); MEAN CORPUSCULAR HGB CONC 32.1 g/dl (32.0-37.0); MEAN CORPUSCULAR VOLUME 90.6 fl (82.0-101.0); MEAN PLATELET VOLUME 10.9 fl (7.4-10.4); MONOCYTE # 0.7 10^3/ul (0.3-0.9); MONOCYTES % 8.6 % (0.0-11.0); NEUTROPHIL # 5.6 10^3/ul (1.6-7.5); NEUTROPHILS % 70.5 % (39.0-77.0); PLATELET COUNT 283 10^3/UL (140-415); RED BLOOD COUNT 2.78 10^6/ul (4.70-6.10); RED CELL DISTRIBUTION WIDTH 13.2 % (11.5-14.5)
[2018-09-22 06:45] LABS: ANION GAP 10 (5-13); CALCIUM 8.8 mg/dl (8.4-10.2); CARBON DIOXIDE 18 mmol/L (21-31); CHLORIDE 109 mmol/L (97-110); CREATININE 4.32 mg/dl (0.61-1.24); Estimated GFR 14 mL/min (>60); GLUCOSE 79 mg/dl (70-220); MAGNESIUM 2.1 mg/dl (1.7-2.5); PHOSPHORUS 5.8 mg/dl (2.5-4.9); POTASSIUM 4.8 mmol/L (3.5-5.1); SODIUM 137 mmol/L (135-144)
[2018-09-22 07:21] LABS: BLOOD UREA NITROGEN 55 mg/dl (7-20)
[2018-09-22] MEDS: INSULIN ASPART [NOVOLOG] 3 ML PEN SC ×7 (08:00→20:46)
[2018-09-22] MEDS: FAMOTIDINE 20 MG TAB PO (08:20)
[2018-09-22] MEDS: ACETYLCYSTEINE 600 MG CAP PO ×2 (09:50→20:43)
[2018-09-22] MEDS: RANOLAZINE (SR) 500 MG TAB PO ×2 (09:50→20:45)
[2018-09-22] MEDS: ISOSORBIDE DINITRATE 20 MG TAB PO ×3 (09:50→20:44)
[2018-09-22] MEDS: ASPIRIN 81 MG TAB PO (09:50)
[2018-09-22] MEDS: AMLODIPINE 10 MG TAB PO (09:51)
[2018-09-22] MEDS: TICAGRELOR 90 MG TABLET PO ×2 (10:38→21:00)
[2018-09-22] MEDS: EPOETIN 10000 UNITS/1 ML INJ (ESRD) SC (17:57)
[2018-09-22] MEDS: ATORVASTATIN 80 MG TAB PO (20:45)
[2018-09-22] MEDS: INSULIN GLARGINE [LANTus] (100 UNITS/ML) SYG SC (20:59)
[2018-09-23] MEDS: ALBUTEROL/IPRATROPIUM (NEB) 3 ML AMP HHN ×4 (02:01→20:01)
[2018-09-23] MEDS: ACCU-CHEK XX (02:55)
[2018-09-23 06:17] LABS: ADD MAN DIFF? NO
[2018-09-23 06:18] LABS: BASOPHIL # 0.1 10^3/ul (0.0-0.1); BASOPHILS % 0.7 % (0.0-2.0); EOSINOPHILS # 0.2 10^3/ul (0.0-0.5); EOSINOPHILS % 2.5 % (0.0-7.0); HEMATOCRIT 26.2 % (42.0-52.0); HEMOGLOBIN 8.4 g/dl (14.0-18.0); LYMPHOCYTES # 1.6 10^3/ul (0.8-2.9); LYMPHOCYTES % 22.1 % (15.0-51.0); MEAN CORPUSCULAR HEMOGLOBIN 28.9 pg (29.0-33.0); MEAN CORPUSCULAR HGB CONC 32.1 g/dl (32.0-37.0); MEAN PLATELET VOLUME 10.6 fl (7.4-10.4); MONOCYTE # 0.7 10^3/ul (0.3-0.9); MONOCYTES % 9.1 % (0.0-11.0); NEUTROPHIL # 4.7 10^3/ul (1.6-7.5); PLATELET COUNT 312 10^3/UL (140-415); RED BLOOD COUNT 2.91 10^6/ul (4.70-6.10); RED CELL DISTRIBUTION WIDTH 13.2 % (11.5-14.5)
[2018-09-23 06:18] LABS: WHITE BLOOD COUNT 7.2 10^3/ul (4.8-10.8)
[2018-09-23 06:34] LABS: ANION GAP 12 (5-13); BLOOD UREA NITROGEN 52 mg/dl (7-20); CALCIUM 8.8 mg/dl (8.4-10.2); CARBON DIOXIDE 18 mmol/L (21-31); CHLORIDE 107 mmol/L (97-110); Estimated GFR 15 mL/min (>60); GLUCOSE 108 mg/dl (70-220); PHOSPHORUS 5.5 mg/dl (2.5-4.9); POTASSIUM 4.7 mmol/L (3.5-5.1); SODIUM 137 mmol/L (135-144)
[2018-09-23] MEDS: INSULIN ASPART [NOVOLOG] 3 ML PEN SC ×7 (07:54→20:29)
[2018-09-23] MEDS: FAMOTIDINE 20 MG TAB PO (09:32)
[2018-09-23] MEDS: ACETYLCYSTEINE 600 MG CAP PO ×2 (09:33→20:31)
[2018-09-23] MEDS: AMLODIPINE 10 MG TAB PO (09:33)
[2018-09-23] MEDS: ISOSORBIDE DINITRATE 20 MG TAB PO ×3 (09:34→20:31)
[2018-09-23] MEDS: RANOLAZINE (SR) 500 MG TAB PO ×2 (09:34→20:31)
[2018-09-23] MEDS: ASPIRIN 81 MG TAB PO (09:34)
[2018-09-23] MEDS: TICAGRELOR 90 MG TABLET PO ×2 (09:39→20:32)
[2018-09-23] MEDS: ATORVASTATIN 80 MG TAB PO (20:31)
[2018-09-23] MEDS: INSULIN GLARGINE [LANTus] (100 UNITS/ML) SYG SC (20:33)
[2018-09-24] MEDS: ALBUTEROL/IPRATROPIUM (NEB) 3 ML AMP HHN ×4 (01:42→19:54)
[2018-09-24] MEDS: ACCU-CHEK XX (02:00)
[2018-09-24 05:21] LABS: ADD MAN DIFF? NO
[2018-09-24 05:23] LABS: BASOPHIL # 0.1 10^3/ul (0.0-0.1); BASOPHILS % 0.6 % (0.0-2.0); EOSINOPHILS # 0.2 10^3/ul (0.0-0.5); HEMATOCRIT 25.6 % (42.0-52.0); HEMOGLOBIN 8.1 g/dl (14.0-18.0); LYMPHOCYTES # 1.8 10^3/ul (0.8-2.9); LYMPHOCYTES % 21.8 % (15.0-51.0); MEAN CORPUSCULAR HEMOGLOBIN 28.7 pg (29.0-33.0); MEAN CORPUSCULAR HGB CONC 31.6 g/dl (32.0-37.0); MEAN CORPUSCULAR VOLUME 90.8 fl (82.0-101.0); MEAN PLATELET VOLUME 10.1 fl (7.4-10.4); MONOCYTE # 0.6 10^3/ul (0.3-0.9); MONOCYTES % 7.8 % (0.0-11.0); NEUTROPHIL # 5.3 10^3/ul (1.6-7.5); NEUTROPHILS % 65.8 % (39.0-77.0); PLATELET COUNT 307 10^3/UL (140-415); RED BLOOD COUNT 2.82 10^6/ul (4.70-6.10); RED CELL DISTRIBUTION WIDTH 13.1 % (11.5-14.5)
[2018-09-24 05:23] LABS: WHITE BLOOD COUNT 8.1 10^3/ul (4.8-10.8)
[2018-09-24 05:56] LABS: ANION GAP 5 (5-13); BLOOD UREA NITROGEN 48 mg/dl (7-20); CALCIUM 8.5 mg/dl (8.4-10.2); CARBON DIOXIDE 19 mmol/L (21-31); CHLORIDE 111 mmol/L (97-110); CREATININE 4.05 mg/dl (0.61-1.24); GLUCOSE 100 mg/dl (70-220); MAGNESIUM 1.9 mg/dl (1.7-2.5); PHOSPHORUS 5.4 mg/dl (2.5-4.9); POTASSIUM 4.4 mmol/L (3.5-5.1); SODIUM 135 mmol/L (135-144)
[2018-09-24] MEDS: INSULIN ASPART [NOVOLOG] 3 ML PEN SC ×7 (07:40→20:01)
[2018-09-24] MEDS: ACETYLCYSTEINE 600 MG CAP PO ×2 (09:09→20:22)
[2018-09-24] MEDS: ISOSORBIDE DINITRATE 20 MG TAB PO ×3 (09:10→20:22)
[2018-09-24] MEDS: RANOLAZINE (SR) 500 MG TAB PO ×2 (09:10→20:22)
[2018-09-24] MEDS: AMLODIPINE 10 MG TAB PO (09:10)
[2018-09-24] MEDS: FAMOTIDINE 20 MG TAB PO (09:11)
[2018-09-24] MEDS: ASPIRIN 81 MG TAB PO (09:11)
[2018-09-24] MEDS: TICAGRELOR 90 MG TABLET PO ×2 (09:50→20:30)
[2018-09-24] MEDS: ATORVASTATIN 80 MG TAB PO (20:22)
[2018-09-24] MEDS: INSULIN GLARGINE [LANTus] (100 UNITS/ML) SYG SC (20:30)
[2018-09-25] MEDS: ACCU-CHEK XX (02:00)
[2018-09-25] MEDS: ALBUTEROL/IPRATROPIUM (NEB) 3 ML AMP HHN ×4 (02:19→20:14)
[2018-09-25 05:26] LABS: ADD MAN DIFF? NO
[2018-09-25 05:32] LABS: BASOPHIL # 0.1 10^3/ul (0.0-0.1); BASOPHILS % 0.7 % (0.0-2.0); EOSINOPHILS # 0.3 10^3/ul (0.0-0.5); EOSINOPHILS % 3.1 % (0.0-7.0); HEMATOCRIT 25.2 % (42.0-52.0); HEMOGLOBIN 8.1 g/dl (14.0-18.0); LYMPHOCYTES # 1.8 10^3/ul (0.8-2.9); LYMPHOCYTES % 21.7 % (15.0-51.0); MEAN CORPUSCULAR HEMOGLOBIN 28.8 pg (29.0-33.0); MEAN CORPUSCULAR HGB CONC 32.1 g/dl (32.0-37.0); MEAN CORPUSCULAR VOLUME 89.7 fl (82.0-101.0); MEAN PLATELET VOLUME 10.1 fl (7.4-10.4); MONOCYTE # 0.7 10^3/ul (0.3-0.9); MONOCYTES % 8.7 % (0.0-11.0); NEUTROPHIL # 5.4 10^3/ul (1.6-7.5); NEUTROPHILS % 64.5 % (39.0-77.0); PLATELET COUNT 335 10^3/UL (140-415); RED BLOOD COUNT 2.81 10^6/ul (4.70-6.10); RED CELL DISTRIBUTION WIDTH 13.2 % (11.5-14.5)
[2018-09-25 05:32] LABS: WHITE BLOOD COUNT 8.4 10^3/ul (4.8-10.8)
[2018-09-25 05:56] LABS: ALBUMIN 2.9 g/dl (3.3-4.9); ANION GAP 9 (5-13); BLOOD UREA NITROGEN 43 mg/dl (7-20); CALCIUM 8.9 mg/dl (8.4-10.2); CARBON DIOXIDE 18 mmol/L (21-31); CHLORIDE 110 mmol/L (97-110); CREATININE 3.93 mg/dl (0.61-1.24); GLUCOSE 74 mg/dl (70-220); PHOSPHORUS 5.5 mg/dl (2.5-4.9); POTASSIUM 4.4 mmol/L (3.5-5.1); SODIUM 137 mmol/L (135-144)
[2018-09-25] MEDS: INSULIN ASPART [NOVOLOG] 3 ML PEN SC ×7 (07:52→20:17)
[2018-09-25] MEDS: ACETYLCYSTEINE 600 MG CAP PO ×2 (07:59→20:11)
[2018-09-25] MEDS: AMLODIPINE 10 MG TAB PO (07:59)
[2018-09-25] MEDS: ASPIRIN 81 MG TAB PO (08:00)
[2018-09-25] MEDS: FAMOTIDINE 20 MG TAB PO (08:26)
[2018-09-25] MEDS: RANOLAZINE (SR) 500 MG TAB PO ×2 (08:26→20:10)
[2018-09-25] MEDS: ISOSORBIDE DINITRATE 20 MG TAB PO ×3 (08:27→20:11)
[2018-09-25] MEDS: TICAGRELOR 90 MG TABLET PO ×2 (08:42→20:12)
[2018-09-25] MEDS: SENNA/DOCUSATE NA (8.6MG/50MG) TAB PO ×2 (13:08→20:10)
[2018-09-25] MEDS: ATORVASTATIN 80 MG TAB PO (20:10)
[2018-09-25] MEDS: INSULIN GLARGINE [LANTus] (100 UNITS/ML) SYG SC (20:17)
[2018-09-26] MEDS: ALBUTEROL/IPRATROPIUM (NEB) 3 ML AMP HHN ×4 (02:00→21:08)
[2018-09-26 05:29] LABS: ADD MAN DIFF? NO
[2018-09-26 05:39] LABS: BASOPHIL # 0.1 10^3/ul (0.0-0.1); BASOPHILS % 0.8 % (0.0-2.0); EOSINOPHILS # 0.2 10^3/ul (0.0-0.5); EOSINOPHILS % 2.7 % (0.0-7.0); HEMOGLOBIN 8.7 g/dl (14.0-18.0); LYMPHOCYTES # 1.8 10^3/ul (0.8-2.9); LYMPHOCYTES % 19.6 % (15.0-51.0); MEAN CORPUSCULAR HEMOGLOBIN 28.8 pg (29.0-33.0); MEAN CORPUSCULAR HGB CONC 32.2 g/dl (32.0-37.0); MEAN CORPUSCULAR VOLUME 89.4 fl (82.0-101.0); MEAN PLATELET VOLUME 9.8 fl (7.4-10.4); MONOCYTE # 0.8 10^3/ul (0.3-0.9); MONOCYTES % 8.6 % (0.0-11.0); NEUTROPHIL # 6.1 10^3/ul (1.6-7.5); NEUTROPHILS % 67.4 % (39.0-77.0); PLATELET COUNT 354 10^3/UL (140-415); RED BLOOD COUNT 3.02 10^6/ul (4.70-6.10); RED CELL DISTRIBUTION WIDTH 13.2 % (11.5-14.5)
[2018-09-26 06:16] LABS: ALBUMIN 3.3 g/dl (3.3-4.9); ANION GAP 11 (5-13); BLOOD UREA NITROGEN 40 mg/dl (7-20); CALCIUM 9.1 mg/dl (8.4-10.2); CARBON DIOXIDE 18 mmol/L (21-31); CHLORIDE 108 mmol/L (97-110); CREATININE 3.85 mg/dl (0.61-1.24); GLUCOSE 72 mg/dl (70-220); PHOSPHORUS 5.3 mg/dl (2.5-4.9); POTASSIUM 4.2 mmol/L (3.5-5.1); SODIUM 137 mmol/L (135-144)
[2018-09-26] MEDS: INSULIN ASPART [NOVOLOG] 3 ML PEN SC ×7 (08:00→20:36)
[2018-09-26] MEDS: ACETYLCYSTEINE 600 MG CAP PO ×2 (10:38→20:28)
[2018-09-26] MEDS: ASPIRIN 81 MG TAB PO (10:39)
[2018-09-26] MEDS: ISOSORBIDE DINITRATE 20 MG TAB PO ×3 (10:39→20:29)
[2018-09-26] MEDS: SENNA/DOCUSATE NA (8.6MG/50MG) TAB PO ×2 (10:39→20:28)
[2018-09-26] MEDS: FAMOTIDINE 20 MG TAB PO (10:41)
[2018-09-26] MEDS: AMLODIPINE 10 MG TAB PO (10:41)
[2018-09-26] MEDS: RANOLAZINE (SR) 500 MG TAB PO ×2 (10:41→20:28)
[2018-09-26] MEDS: TICAGRELOR 90 MG TABLET PO ×2 (10:50→20:35)
[2018-09-26] MEDS: ATORVASTATIN 80 MG TAB PO (20:28)
[2018-09-26] MEDS: INSULIN GLARGINE [LANTus] (100 UNITS/ML) SYG SC (20:35)
[2018-09-27] MEDS: ALBUTEROL/IPRATROPIUM (NEB) 3 ML AMP HHN ×4 (01:49→20:03)
[2018-09-27 05:21] LABS: ADD MAN DIFF? NO
[2018-09-27 05:33] LABS: BASOPHIL # 0.1 10^3/ul (0.0-0.1); BASOPHILS % 0.7 % (0.0-2.0); EOSINOPHILS # 0.2 10^3/ul (0.0-0.5); EOSINOPHILS % 1.9 % (0.0-7.0); HEMATOCRIT 26.8 % (42.0-52.0); HEMOGLOBIN 8.5 g/dl (14.0-18.0); LYMPHOCYTES # 1.7 10^3/ul (0.8-2.9); LYMPHOCYTES % 18.8 % (15.0-51.0); MEAN CORPUSCULAR HEMOGLOBIN 28.4 pg (29.0-33.0); MEAN CORPUSCULAR HGB CONC 31.7 g/dl (32.0-37.0); MEAN CORPUSCULAR VOLUME 89.6 fl (82.0-101.0); MEAN PLATELET VOLUME 9.7 fl (7.4-10.4); MONOCYTE # 0.7 10^3/ul (0.3-0.9); MONOCYTES % 7.8 % (0.0-11.0); NEUTROPHIL # 6.4 10^3/ul (1.6-7.5); NEUTROPHILS % 69.9 % (39.0-77.0); PLATELET COUNT 357 10^3/UL (140-415); RED BLOOD COUNT 2.99 10^6/ul (4.70-6.10); RED CELL DISTRIBUTION WIDTH 13.4 % (11.5-14.5)
[2018-09-27 05:33] LABS: WHITE BLOOD COUNT 9.2 10^3/ul (4.8-10.8)
[2018-09-27 05:51] LABS: ALBUMIN 3.1 g/dl (3.3-4.9); ANION GAP 9 (5-13); BLOOD UREA NITROGEN 40 mg/dl (7-20); CALCIUM 8.7 mg/dl (8.4-10.2); CARBON DIOXIDE 20 mmol/L (21-31); CHLORIDE 108 mmol/L (97-110); CREATININE 3.85 mg/dl (0.61-1.24); GLUCOSE 92 mg/dl (70-220); MAGNESIUM 1.9 mg/dl (1.7-2.5); PHOSPHORUS 5.2 mg/dl (2.5-4.9); POTASSIUM 4.5 mmol/L (3.5-5.1); SODIUM 137 mmol/L (135-144)
[2018-09-27] MEDS: INSULIN ASPART [NOVOLOG] 3 ML PEN SC ×7 (08:00→21:00)
[2018-09-27] MEDS: SENNA/DOCUSATE NA (8.6MG/50MG) TAB PO ×2 (08:57→20:54)
[2018-09-27] MEDS: ASPIRIN 81 MG TAB PO (08:57)
[2018-09-27] MEDS: ACETYLCYSTEINE 600 MG CAP PO ×2 (08:58→20:54)
[2018-09-27] MEDS: FAMOTIDINE 20 MG TAB PO (08:58)
[2018-09-27] MEDS: AMLODIPINE 10 MG TAB PO (08:58)
[2018-09-27] MEDS: ISOSORBIDE DINITRATE 20 MG TAB PO ×3 (08:58→20:55)
[2018-09-27] MEDS: RANOLAZINE (SR) 500 MG TAB PO ×2 (08:59→20:54)
[2018-09-27] MEDS: TICAGRELOR 90 MG TABLET PO ×2 (09:02→21:03)
[2018-09-27] MEDS: ATORVASTATIN 80 MG TAB PO (20:54)
[2018-09-27] MEDS: INSULIN GLARGINE [LANTus] (100 UNITS/ML) SYG SC (21:03)
[2018-09-28] MEDS: SOD CHLORIDE 0.9% 1,000 ML IV ×3 (00:04→20:00)
[2018-09-28] MEDS: ALBUTEROL/IPRATROPIUM (NEB) 3 ML AMP HHN ×4 (01:22→19:39)
[2018-09-28 05:57] LABS: ADD MAN DIFF? NO
[2018-09-28 06:16] LABS: BASOPHIL # 0.1 10^3/ul (0.0-0.1); BASOPHILS % 0.6 % (0.0-2.0); EOSINOPHILS # 0.2 10^3/ul (0.0-0.5); EOSINOPHILS % 1.9 % (0.0-7.0); HEMATOCRIT 25.8 % (42.0-52.0); LYMPHOCYTES # 1.6 10^3/ul (0.8-2.9); LYMPHOCYTES % 16.2 % (15.0-51.0); MEAN CORPUSCULAR HEMOGLOBIN 27.8 pg (29.0-33.0); MEAN CORPUSCULAR VOLUME 89.6 fl (82.0-101.0); MEAN PLATELET VOLUME 9.6 fl (7.4-10.4); MONOCYTE # 0.7 10^3/ul (0.3-0.9); MONOCYTES % 6.9 % (0.0-11.0); NEUTROPHIL # 7.3 10^3/ul (1.6-7.5); NEUTROPHILS % 73.7 % (39.0-77.0); PLATELET COUNT 369 10^3/UL (140-415); RED BLOOD COUNT 2.88 10^6/ul (4.70-6.10); RED CELL DISTRIBUTION WIDTH 13.9 % (11.5-14.5)
[2018-09-28 06:25] LABS: ANION GAP 10 (5-13); BLOOD UREA NITROGEN 37 mg/dl (7-20); CALCIUM 8.6 mg/dl (8.4-10.2); CARBON DIOXIDE 20 mmol/L (21-31); CHLORIDE 108 mmol/L (97-110); CREATININE 3.71 mg/dl (0.61-1.24); Estimated GFR 17 mL/min (>60); GLUCOSE 53 mg/dl (70-220); MAGNESIUM 1.9 mg/dl (1.7-2.5); PHOSPHORUS 4.9 mg/dl (2.5-4.9); POTASSIUM 4.3 mmol/L (3.5-5.1); SODIUM 138 mmol/L (135-144)
[2018-09-28] MEDS ORDERED: LIDOCAINE 1% (MDV) 20 ML INJ (06:36)
[2018-09-28] MEDS ORDERED: HEPARIN 1000 UNITS/ML 10 ML INJ (06:36)
[2018-09-28] MEDS ORDERED: MIDAZOLAM 1 MG/ML 2 ML INJ (06:36)
[2018-09-28] MEDS ORDERED: IODIXANOL LOCM 100 ML BTL (06:36)
[2018-09-28] MEDS ORDERED: FENTAnyl 50 MCG/ML VIAL (06:36)
[2018-09-28] MEDS ORDERED: VERAPAMIL 5 MG INJ (06:37)
[2018-09-28] MEDS ORDERED: NITROGLYCERIN (IC) 100 MCG/ML INJ (06:37)
[2018-09-28] MEDS: DEXTROSE 50% 50 ML SYRINGE IV (06:40)
[2018-09-28] MEDS ORDERED: SOD CHLORIDE 0.9% 500 ML (07:38)
[2018-09-28] MEDS: INSULIN ASPART [NOVOLOG] 3 ML PEN SC ×7 (07:57→21:48)
[2018-09-28] MEDS ORDERED: BIVALIRUDIN 250MG /NS 50 ML 50 ML IVPB (08:09)
[2018-09-28] MEDS ORDERED: ASPIRIN 81 MG TAB (08:16)
[2018-09-28] MEDS ORDERED: TICAGRELOR 90 MG TABLET (08:16)
[2018-09-28] MEDS: ASPIRIN 81 MG TAB PO (10:31)
[2018-09-28] MEDS: ISOSORBIDE DINITRATE 20 MG TAB PO ×3 (10:32→21:36)
[2018-09-28] MEDS: TICAGRELOR 90 MG TABLET PO ×2 (10:32→21:41)
[2018-09-28] MEDS: ACETYLCYSTEINE 600 MG CAP PO ×2 (10:32→21:35)
[2018-09-28] MEDS: AMLODIPINE 5 MG TAB PO (10:32)
[2018-09-28] MEDS: SENNA/DOCUSATE NA (8.6MG/50MG) TAB PO ×2 (10:33→21:46)
[2018-09-28] MEDS: FAMOTIDINE 20 MG TAB PO (10:33)
[2018-09-28] MEDS: RANOLAZINE (SR) 500 MG TAB PO ×2 (10:33→21:34)
[2018-09-28] MEDS: ATORVASTATIN 80 MG TAB PO (21:35)
[2018-09-28] MEDS: INSULIN GLARGINE [LANTus] (100 UNITS/ML) SYG SC (21:44)
[2018-09-29] MEDS: ALBUTEROL/IPRATROPIUM (NEB) 3 ML AMP HHN ×3 (01:50→13:33)
[2018-09-29] MEDS: INSULIN ASPART [NOVOLOG] 3 ML PEN SC ×6 (07:55→17:08)
[2018-09-29 08:27] LABS: ADD MAN DIFF? NO
[2018-09-29] MEDS: FAMOTIDINE 20 MG TAB PO (08:28)
[2018-09-29] MEDS: RANOLAZINE (SR) 500 MG TAB PO (08:28)
[2018-09-29] MEDS: ASPIRIN 81 MG TAB PO (08:29)
[2018-09-29] MEDS: ACETYLCYSTEINE 600 MG CAP PO (08:29)
[2018-09-29] MEDS: TICAGRELOR 90 MG TABLET PO (08:30)
[2018-09-29 08:31] LABS: WHITE BLOOD COUNT 8.6 10^3/ul (4.8-10.8)
[2018-09-29 08:31] LABS: BASOPHILS % 0.5 % (0.0-2.0); EOSINOPHILS # 0.2 10^3/ul (0.0-0.5); EOSINOPHILS % 2.2 % (0.0-7.0); HEMATOCRIT 26.2 % (42.0-52.0); HEMOGLOBIN 8.2 g/dl (14.0-18.0); LYMPHOCYTES # 1.3 10^3/ul (0.8-2.9); LYMPHOCYTES % 15.6 % (15.0-51.0); MEAN CORPUSCULAR HEMOGLOBIN 28.3 pg (29.0-33.0); MEAN CORPUSCULAR HGB CONC 31.3 g/dl (32.0-37.0); MEAN CORPUSCULAR VOLUME 90.3 fl (82.0-101.0); MEAN PLATELET VOLUME 9.3 fl (7.4-10.4); MONOCYTE # 0.6 10^3/ul (0.3-0.9); NEUTROPHIL # 6.4 10^3/ul (1.6-7.5); NEUTROPHILS % 74.1 % (39.0-77.0); PLATELET COUNT 326 10^3/UL (140-415); RED CELL DISTRIBUTION WIDTH 13.9 % (11.5-14.5)
[2018-09-29] MEDS: ISOSORBIDE DINITRATE 20 MG TAB PO ×2 (08:31→12:10)
[2018-09-29] MEDS: AMLODIPINE 5 MG TAB PO (08:31)
[2018-09-29] MEDS: SENNA/DOCUSATE NA (8.6MG/50MG) TAB PO (08:33)
[2018-09-29 08:50] LABS: CREATINE KINASE 157 IU/L (23-200)
[2018-09-29 09:03] LABS: CK INDEX 1.9
[2018-09-29 09:15] LABS: ANION GAP 7 (5-13); BLOOD UREA NITROGEN 31 mg/dl (7-20); CALCIUM 8.7 mg/dl (8.4-10.2); CARBON DIOXIDE 20 mmol/L (21-31); CHLORIDE 111 mmol/L (97-110); CREATININE 3.35 mg/dl (0.61-1.24); Estimated GFR 19 mL/min (>60); GLUCOSE 89 mg/dl (70-220); MAGNESIUM 1.9 mg/dl (1.7-2.5); PHOSPHORUS 4.4 mg/dl (2.5-4.9); POTASSIUM 4.5 mmol/L (3.5-5.1); SODIUM 138 mmol/L (135-144)
[2018-09-29 09:16] LABS: CK-MB 2.91 ng/ml (0.0-2.4); TROPONIN-I 0.488 ng/ml (0.000-0.120)
[2018-09-29 09:17] LABS: ALANINE AMINOTRANSFERASE 27 IU/L (13-69); ALBUMIN 2.8 g/dl (3.3-4.9); ALBUMIN/GLOBULIN RATIO 1.12; ALKALINE PHOSPHATASE 83 IU/L (42-121); ANION GAP 6 (5-13); ASPARTATE AMINO TRANSFERASE 26 IU/L (15-46); BILIRUBIN,INDIRECT 0.1 mg/dl (0-1.1); BILIRUBIN,TOTAL 0.1 mg/dl (0.2-1.3); BLOOD UREA NITROGEN 31 mg/dl (7-20); CALCIUM 8.6 mg/dl (8.4-10.2); CARBON DIOXIDE 21 mmol/L (21-31); CHLORIDE 111 mmol/L (97-110); CREATININE 3.33 mg/dl (0.61-1.24); Estimated GFR 19 mL/min (>60); GLUCOSE 89 mg/dl (70-220); POTASSIUM 4.4 mmol/L (3.5-5.1); SODIUM 138 mmol/L (135-144); TOTAL PROTEIN 5.3 g/dl (6.1-8.1)
[2018-09-29] MEDS: SOD CHLORIDE 0.9% 1,000 ML IV (16:00)
== END 2018-09-29 19:30 | disposition home or self-care (01) | DRG 246 ==
LOC: 6WM 09-17 22:44 → TEL 09-28 08:30 → ICU 09-15 11:36 → E/R 08:20 → 6WM 09-25 20:24
PROC: 027036Z Dilation of Coronary Artery, One Artery with Three Drug-eluting Intraluminal Devices, Percutaneous Approach (ICD-10-PCS; principal; 2018-09-15 07:10)
PROC: 027035Z Dilation of Coronary Artery, One Artery with Two Drug-eluting Intraluminal Devices, Percutaneous Approach (ICD-10-PCS; 2018-09-15 07:10)
PROC: 4A023N7 Measurement of Cardiac Sampling and Pressure, Left Heart, Percutaneous Approach (ICD-10-PCS; 2018-09-15 07:10)
PROC: B211YZZ Fluoroscopy of Multiple Coronary Arteries using Other Contrast (ICD-10-PCS; 2018-09-15 07:10)
PROC: 4A023N7 Measurement of Cardiac Sampling and Pressure, Left Heart, Percutaneous Approach (ICD-10-PCS; 2018-09-15 07:10)
DX: I21.4 Non-ST elevation (NSTEMI) myocardial infarction (principal); I50.43 Acute on chronic combined systolic (congestive) and diastolic (congestive) heart failure; N17.0 Acute kidney failure with tubular necrosis; I13.0 Hypertensive heart and chronic kidney disease with heart failure and stage 1 through stage 4 chronic kidney disease, or unspecified chronic kidney disease; E87.2 Acidosis; N18.4 Chronic kidney disease, stage 4 (severe); F17.200 Nicotine dependence, unspecified, uncomplicated; E11.22 Type 2 diabetes mellitus with diabetic chronic kidney disease; D63.1 Anemia in chronic kidney disease; I25.10 Atherosclerotic heart disease of native coronary artery without angina pectoris; Z95.5 Presence of coronary angioplasty implant and graft; J44.9 Chronic obstructive pulmonary disease, unspecified; E11.21 Type 2 diabetes mellitus with diabetic nephropathy; I25.2 Old myocardial infarction; E78.5 Hyperlipidemia, unspecified; E83.89 Other disorders of mineral metabolism; G47.33 Obstructive sleep apnea (adult) (pediatric); F41.9 Anxiety disorder, unspecified
CPT/HCPCS: 36415; 71045; 76775; 80048; 80053; 80061; 80069; 81001; 81003; 82043; 82550; 82553; 82595; 82962; 83036; 83540; 83735; 83880; 84100; 84155; 84300; 84443; 84484; 85014; 85018; 85025; 85045; 85610; 85730; 86021; 86038; 86160; 86226; 86430; 86704; 86709; 86803; 87081; 87340; 90686; 93005; 93306; 93458; 94640; 94660; 94664; 96372; 96374; 99291-25

== ENCOUNTER 2018-12-11 17:35 | Inpatient (IN) | payer OTHER ==
[2018-12-11 20:58] LABS: ADD MAN DIFF? NO
[2018-12-11 21:00] LABS: BASOPHILS % 0.5 % (0.0-2.0); EOSINOPHILS # 0.3 10^3/ul (0.0-0.5); EOSINOPHILS % 3.2 % (0.0-7.0); HEMATOCRIT 29.9 % (42.0-52.0); HEMOGLOBIN 9.5 g/dl (14.0-18.0); LYMPHOCYTES # 2.1 10^3/ul (0.8-2.9); LYMPHOCYTES % 24.7 % (15.0-51.0); MEAN CORPUSCULAR HEMOGLOBIN 27.5 pg (29.0-33.0); MEAN CORPUSCULAR HGB CONC 31.8 g/dl (32.0-37.0); MEAN CORPUSCULAR VOLUME 86.7 fl (82.0-101.0); MEAN PLATELET VOLUME 10.1 fl (7.4-10.4); MONOCYTE # 0.7 10^3/ul (0.3-0.9); MONOCYTES % 7.6 % (0.0-11.0); NEUTROPHIL # 5.5 10^3/ul (1.6-7.5); NEUTROPHILS % 63.7 % (39.0-77.0); PLATELET COUNT 224 10^3/UL (140-415); RED BLOOD COUNT 3.45 10^6/ul (4.70-6.10); RED CELL DISTRIBUTION WIDTH 13.8 % (11.5-14.5)
[2018-12-11 21:00] LABS: WHITE BLOOD COUNT 8.7 10^3/ul (4.8-10.8)
[2018-12-11 21:18] LABS: ANION GAP 8 (5-13); BLOOD UREA NITROGEN 50 mg/dl (7-20); CALCIUM 8.6 mg/dl (8.4-10.2); CARBON DIOXIDE 22 mmol/L (21-31); CHLORIDE 114 mmol/L (97-110); CHOL/HDL RATIO 4.6 RATIO; CHOLESTEROL 149 mg/dl (100-200); CREATININE 3.37 mg/dl (0.61-1.24); Estimated GFR 19 mL/min (>60); GLUCOSE 136 mg/dl (70-220); HDL CHOLESTEROL 32 mg/dl (30-78); LDL CHOLESTEROL,CALCULATED 60 mg/dl; SODIUM 144 mmol/L (135-144); TRIGLYCERIDES 283 mg/dl (0-149)
[2018-12-11 21:25] LABS: ADD UMIC YES; UR ASCORBIC ACID NEGATIVE (NEGATIVE); UR BILIRUBIN (Dip) NEGATIVE (NEGATIVE); UR BLOOD (Dip) 1+ mg/dL (NEGATIVE); UR CLARITY CLEAR (CLEAR); UR COLOR YELLOW (YELLOW); UR GLUCOSE (Dip) 2+ mg/dL (NEGATIVE); UR KETONES (Dip) NEGATIVE (NEGATIVE); UR LEUKOCYTE ESTERASE (Dip) NEGATIVE Leu/ul (NEGATIVE); UR NITRITE (Dip) NEGATIVE (NEGATIVE); UR RBC 1 /HPF (0-5); UR SPECIFIC GRAVITY (Dip) 1.016 (1.003-1.030); UR TOTAL PROTEIN (Dip) 3+ mg/dl (NEGATIVE); UR UROBILINOGEN (Dip) NEGATIVE (NEGATIVE); UR WBC 1 /HPF (0-5)
[2018-12-11 21:27] LABS: HEMOGLOBIN A1C 7.6 % (0-5.9)
[2018-12-11 21:31] LABS: INR 0.91; PARTIAL THROMBOPLASTIN TIME 26.6 Sec (23.0-35.0); PROTIME 12.4 Sec (11.9-14.9)
[2018-12-11 21:43] LABS: TROPONIN-I 0.028 ng/ml (0.000-0.120)
[2018-12-11] MEDS: INSULIN GLARGINE [LANTus] (100 UNITS/ML) SYG SC (22:00)
[2018-12-11] MEDS ORDERED: ONDANSETRON 4 MG INJ IV (22:00)
[2018-12-11] MEDS ORDERED: ACETAMINOPHEN 325 MG TAB PO (22:00)
[2018-12-11 22:03] LABS: AMPHETAMINE/METHAMPHETAMINE NEGATIVE (NEGATIVE); BARBITURATES NEGATIVE (NEGATIVE); BENZODIAZEPINES NEGATIVE (NEGATIVE); CANNABINOIDS NEGATIVE (NEGATIVE); COCAINE NEGATIVE (NEGATIVE); OPIATES NEGATIVE (NEGATIVE)
[2018-12-11] MEDS ORDERED: BISACODYL (EC) 5 MG TAB PO (22:30)
[2018-12-11] MEDS ORDERED: NACL 0.9% 3 ML SYG IV (22:30)
[2018-12-11] MEDS ORDERED: GLUCAGON 1 MG INJ IM (22:30)
[2018-12-11] MEDS ORDERED: DEXTROSE 50% 50 ML SYRINGE IV ×2 (22:30)
[2018-12-11] MEDS ORDERED: ONDANSETRON 4 MG TAB PO (22:30)
[2018-12-11] MEDS ORDERED: GLUCOSE GEL 15 GRAM TUBE BUCCAL (22:30)
[2018-12-11] MEDS ORDERED: DOCUSATE SODIUM 100 MG CAP PO (22:30)
[2018-12-11] MEDS ORDERED: GLUCOSE GEL 15 GRAM TUBE PO ×2 (22:30)
[2018-12-11] MEDS: ASPIRIN 325 MG TAB PO (22:52)
[2018-12-11] MEDS: AMLODIPINE 5 MG TAB PO (22:53)
[2018-12-12 07:38] LABS: ADD MAN DIFF? NO
[2018-12-12 07:42] LABS: WHITE BLOOD COUNT 8.1 10^3/ul (4.8-10.8)
[2018-12-12 07:42] LABS: BASOPHILS % 0.5 % (0.0-2.0); EOSINOPHILS # 0.3 10^3/ul (0.0-0.5); EOSINOPHILS % 3.5 % (0.0-7.0); HEMATOCRIT 27.7 % (42.0-52.0); HEMOGLOBIN 8.8 g/dl (14.0-18.0); LYMPHOCYTES # 2.4 10^3/ul (0.8-2.9); LYMPHOCYTES % 29.5 % (15.0-51.0); MEAN CORPUSCULAR HEMOGLOBIN 27.2 pg (29.0-33.0); MEAN CORPUSCULAR HGB CONC 31.8 g/dl (32.0-37.0); MEAN CORPUSCULAR VOLUME 85.8 fl (82.0-101.0); MEAN PLATELET VOLUME 10.6 fl (7.4-10.4); MONOCYTE # 0.7 10^3/ul (0.3-0.9); MONOCYTES % 8.4 % (0.0-11.0); NEUTROPHIL # 4.7 10^3/ul (1.6-7.5); NEUTROPHILS % 57.6 % (39.0-77.0); PLATELET COUNT 204 10^3/UL (140-415); RED BLOOD COUNT 3.23 10^6/ul (4.70-6.10)
[2018-12-12] MEDS ORDERED: INSULIN ASPART [NOVOLOG] 3 ML PEN SC (07:55)
[2018-12-12 08:03] LABS: ALANINE AMINOTRANSFERASE 21 IU/L (13-69); ALBUMIN/GLOBULIN RATIO 1.07; ALKALINE PHOSPHATASE 71 IU/L (42-121); ANION GAP 7 (5-13); ASPARTATE AMINO TRANSFERASE 26 IU/L (15-46); BILIRUBIN,INDIRECT 0.1 mg/dl (0-1.1); BILIRUBIN,TOTAL 0.1 mg/dl (0.2-1.3); BLOOD UREA NITROGEN 49 mg/dl (7-20); CALCIUM 8.2 mg/dl (8.4-10.2); CARBON DIOXIDE 20 mmol/L (21-31); CHLORIDE 116 mmol/L (97-110); CREATININE 3.14 mg/dl (0.61-1.24); Estimated GFR 20 mL/min (>60); GLUCOSE 175 mg/dl (70-220); MAGNESIUM 1.6 mg/dl (1.7-2.5); POTASSIUM 4.1 mmol/L (3.5-5.1); SODIUM 143 mmol/L (135-144); TOTAL PROTEIN 5.8 g/dl (6.1-8.1)
[2018-12-12] MEDS: INSULIN GLARGINE [LANTus] (100 UNITS/ML) SYG SC (08:33)
[2018-12-12] MEDS: INSULIN ASPART [NOVOLOG] 3 ML PEN SC ×4 (08:33→22:02)
[2018-12-12] MEDS: ASPIRIN (EC) 81 MG TAB PO (08:34)
[2018-12-12] MEDS: TICAGRELOR 90 MG TABLET PO ×2 (08:34→22:02)
[2018-12-12] MEDS: AMLODIPINE 10 MG TAB PO (08:35)
[2018-12-12] MEDS ORDERED: AMLODIPINE 10 MG TAB PO (09:00)
[2018-12-12] MEDS: MAGNESIUM SULFATE 2 GM/50 ML 50 ML IVPB (10:41)
[2018-12-12] MEDS: hydrALAzine 20 MG INJ IV ×2 (15:30→22:21)
[2018-12-12] MEDS: ACETAMINOPHEN 325 MG TAB PO (15:39)
[2018-12-12] MEDS: ATORVASTATIN 20 MG TAB PO (21:59)
[2018-12-13] MEDS: ACCU-CHEK XX (02:15)
[2018-12-13 06:49] LABS: ADD MAN DIFF? NO
[2018-12-13 06:58] LABS: BASOPHIL # 0.1 10^3/ul (0.0-0.1); BASOPHILS % 0.5 % (0.0-2.0); EOSINOPHILS # 0.3 10^3/ul (0.0-0.5); EOSINOPHILS % 2.9 % (0.0-7.0); HEMATOCRIT 29.8 % (42.0-52.0); HEMOGLOBIN 9.6 g/dl (14.0-18.0); LYMPHOCYTES # 2.1 10^3/ul (0.8-2.9); LYMPHOCYTES % 22.9 % (15.0-51.0); MEAN CORPUSCULAR HEMOGLOBIN 27.4 pg (29.0-33.0); MEAN CORPUSCULAR HGB CONC 32.2 g/dl (32.0-37.0); MEAN CORPUSCULAR VOLUME 84.9 fl (82.0-101.0); MEAN PLATELET VOLUME 10.5 fl (7.4-10.4); MONOCYTE # 0.6 10^3/ul (0.3-0.9); MONOCYTES % 5.9 % (0.0-11.0); NEUTROPHIL # 6.2 10^3/ul (1.6-7.5); NEUTROPHILS % 67.5 % (39.0-77.0); PLATELET COUNT 249 10^3/UL (140-415); RED BLOOD COUNT 3.51 10^6/ul (4.70-6.10); RED CELL DISTRIBUTION WIDTH 13.9 % (11.5-14.5)
[2018-12-13 06:58] LABS: WHITE BLOOD COUNT 9.3 10^3/ul (4.8-10.8)
[2018-12-13 07:20] LABS: ANION GAP 6 (5-13); BLOOD UREA NITROGEN 48 mg/dl (7-20); CALCIUM 8.9 mg/dl (8.4-10.2); CARBON DIOXIDE 20 mmol/L (21-31); CHLORIDE 115 mmol/L (97-110); CREATININE 3.19 mg/dl (0.61-1.24); Estimated GFR 20 mL/min (>60); GLUCOSE 130 mg/dl (70-220); PHOSPHORUS 4.5 mg/dl (2.5-4.9); SODIUM 141 mmol/L (135-144)
[2018-12-13] MEDS: INSULIN ASPART [NOVOLOG] 3 ML PEN SC ×4 (07:50→20:58)
[2018-12-13] MEDS: ASPIRIN (EC) 81 MG TAB PO (08:13)
[2018-12-13] MEDS: AMLODIPINE 10 MG TAB PO (08:13)
[2018-12-13] MEDS: INSULIN GLARGINE [LANTus] (100 UNITS/ML) SYG SC (08:14)
[2018-12-13] MEDS: TICAGRELOR 90 MG TABLET PO ×2 (08:14→20:58)
[2018-12-13] MEDS: CITRIC ACID/NA CITRATE 30 ML CUP PO ×2 (10:32→20:46)
[2018-12-13 16:02] LABS: ERYTHROCYTE SEDIMENTATION RATE 65 mm/Hr (0-20)
[2018-12-13 19:32] LABS: RAPID PLASMA REAGIN NONREACTIVE (NR)
[2018-12-13] MEDS: ATORVASTATIN 20 MG TAB PO (20:46)
[2018-12-14] MEDS: ACCU-CHEK XX (02:00)
[2018-12-14 06:25] LABS: ADD MAN DIFF? NO
[2018-12-14 06:30] LABS: BASOPHILS % 0.4 % (0.0-2.0); EOSINOPHILS # 0.3 10^3/ul (0.0-0.5); HEMATOCRIT 28.6 % (42.0-52.0); HEMOGLOBIN 9.2 g/dl (14.0-18.0); LYMPHOCYTES % 22.3 % (15.0-51.0); MEAN CORPUSCULAR HEMOGLOBIN 27.1 pg (29.0-33.0); MEAN CORPUSCULAR HGB CONC 32.2 g/dl (32.0-37.0); MEAN CORPUSCULAR VOLUME 84.4 fl (82.0-101.0); MEAN PLATELET VOLUME 10.4 fl (7.4-10.4); MONOCYTE # 0.5 10^3/ul (0.3-0.9); NEUTROPHIL # 6.1 10^3/ul (1.6-7.5); PLATELET COUNT 232 10^3/UL (140-415); RED BLOOD COUNT 3.39 10^6/ul (4.70-6.10)
[2018-12-14 07:06] LABS: ANION GAP 7 (5-13); BLOOD UREA NITROGEN 48 mg/dl (7-20); CALCIUM 8.4 mg/dl (8.4-10.2); CARBON DIOXIDE 21 mmol/L (21-31); CHLORIDE 113 mmol/L (97-110); CREATININE 3.13 mg/dl (0.61-1.24); Estimated GFR 20 mL/min (>60); GLUCOSE 91 mg/dl (70-220); MAGNESIUM 1.9 mg/dl (1.7-2.5); PHOSPHORUS 4.8 mg/dl (2.5-4.9); POTASSIUM 3.8 mmol/L (3.5-5.1); SODIUM 141 mmol/L (135-144)
[2018-12-14] MEDS: INSULIN ASPART [NOVOLOG] 3 ML PEN SC (07:55)
[2018-12-14] MEDS: CITRIC ACID/NA CITRATE 30 ML CUP PO (08:08)
[2018-12-14] MEDS: ASPIRIN (EC) 81 MG TAB PO (08:08)
[2018-12-14] MEDS: TICAGRELOR 90 MG TABLET PO (08:09)
[2018-12-14] MEDS: INSULIN GLARGINE [LANTus] (100 UNITS/ML) SYG SC (08:09)
[2018-12-14] MEDS: AMLODIPINE 10 MG TAB PO (08:10)
== END 2018-12-14 11:40 | disposition home or self-care (01) | DRG 65 ==
LOC: TEL 21:42 → E/R 17:35
PROVIDERS: Family Medicine
DX: I63.9 Cerebral infarction, unspecified (principal); N18.4 Chronic kidney disease, stage 4 (severe); E87.2 Acidosis; N17.9 Acute kidney failure, unspecified; I13.0 Hypertensive heart and chronic kidney disease with heart failure and stage 1 through stage 4 chronic kidney disease, or unspecified chronic kidney disease; I50.32 Chronic diastolic (congestive) heart failure; E11.22 Type 2 diabetes mellitus with diabetic chronic kidney disease; E83.42 Hypomagnesemia; I25.10 Atherosclerotic heart disease of native coronary artery without angina pectoris; D63.1 Anemia in chronic kidney disease; E78.5 Hyperlipidemia, unspecified; G47.33 Obstructive sleep apnea (adult) (pediatric); R00.1 Bradycardia, unspecified; E66.9 Obesity, unspecified; Z68.33 Body mass index [BMI] 33.0-33.9, adult; I25.2 Old myocardial infarction; Z95.5 Presence of coronary angioplasty implant and graft; Z87.891 Personal history of nicotine dependence; Z79.4 Long term (current) use of insulin; I69.392 Facial weakness following cerebral infarction
CPT/HCPCS: 36415; 70450; 70544; 70549; 70551; 71045; 72141; 80048; 80053; 80061; 80307; 81001; 82962; 83036; 83735; 84100; 84443; 84484; 85025; 85610; 85651; 85730; 86592; 92610; 93005; 93306; 93880; 97161; 97167; 99285-25